=== PATIENT | female | born 1980 | race Caucasian/White ===

== ENCOUNTER 2021-07-25 15:39 | Emergency (ER) | payer OTHER ==
[~2021-07-25] VITALS: Ht 157.4 cm; Wt 99.8 kg
[~2021-07-25 15:39] MED LIST: CORTISPORIN 1%-10 M1 OT; ZITHROMAX Z PA250 MG PO
[2021-07-25] MEDS ORDERED: PREDNISONE20 M1 PO (18:15)
== END 2021-07-25 18:27 | disposition left against medical advice (07) ==
LOC: ED 15:39
DX: T63.441A Toxic effect of venom of bees, accidental (unintentional), initial encounter (principal); R22.0 Localized swelling, mass and lump, head; Z88.0 Allergy status to penicillin; Z79.2 Long term (current) use of antibiotics; Y92.89 Other specified places as the place of occurrence of the external cause